=== PATIENT | female | born 1930 | race Caucasian/White ===

== ENCOUNTER 2016-11-07 16:22 | Observation (INO) | payer OTHER ==
[~2016-11-07] VITALS: Ht 162.6 cm; Wt 69.7 kg
[~2016-11-07 16:22] MED LIST: ATORVASTATIN CA40 MG PO; CIPRO500 MG PO; COUMADIN2 MG PO; DOK PLUS TABLE1 EACH PO; DONEPEZIL HCL10 MG PO; ELIQUIS5 MG PO; GLIMEPIRIDE4 MG PO; INSULIN SQ; LANTUS 3 M100 UNITS1 SC; LEVAQUIN500 MG PO; LIPITOR20 MG PO; LISINOPRIL5 MG PO; LO-DOSE ASPIRIN81 M1 PO; LORATADINE10 M2 PO; PANTOPRAZOLE SO40 MG PO; PROZAC40 MG PO; SPIRIVA RESPIMAT4 GM IH; VITAMIN D31000 UNI2 PO; ZOFRAN ODT4 MG PO; ZOFRAN4 MG PO; [UNRECOGNIZED DRUG - OTHER] PO; [UNRECOGNIZED DRUG - OTHER] PO
[2016-11-07 17:51] LABS: CHLORIDE 105 mEq/L (99-109); HEMATOCRIT 40.4 % (36.0-46.0); MCH 28.2 PG (29.0-34.0); MCHC 31.7 G/DL (30.0-36.0); MEAN PLAT.VOLUME 10.3 uM^3 (9.5-12.4); PLATELET COUNT 206 K/uL (156-360); RBC DIS.WIDTH-CV 14.3 % (11.8-14.6); RED BLOOD COUNT 4.54 M/uL (3.80-5.20); SODIUM 142 mEq/L (136-147)
[2016-11-07 17:52] LABS: GLUCOSE 136 mg/dL (70-99)
[2016-11-07 17:54] LABS: ANION GAP 10 MEQ/L (2-14)
[2016-11-07 17:56] LABS: GFR ESTIMATE (CALCULATED) 38 mL/min/
[2016-11-07 17:57] LABS: UREA NITROGEN (BUN) 16 mg/dL (9-23)
[2016-11-07 18:02] LABS: WHITE BLOOD COUNT 12.1 K/uL (4.1-10.2)
[2016-11-07 18:03] LABS: INTER. NORMALIZED RATIO 1.4; PROTHROMBIN TIME 14.9 (9.2-11.2)
[2016-11-07 18:04] LABS: ADD MIUA? YES; BILIRUBIN NEGATIVE; BLOOD NEGATIVE; COLOR YELLOW ((YELLOW)); GLUCOSE (STRIP) NEGATIVE; KETONES NEGATIVE; LEUKOCYTES SMALL; NITRITE NEGATIVE; PROTEIN (STRIP) NEGATIVE; SPECIFIC GRAVITY 1.018 (1.000-1.030)
[2016-11-07 18:20] LABS: BACTERIA RARE /HPF; EPITHELIAL CELLS 3+ /HPF; MUCUS TRACE /LPF; RED BLOOD CELLS NONE SEEN /HPF (0-5); UCUL ADDED? NO
[2016-11-07 20:45] VITALS: BP 144/64
[2016-11-07] MEDS ORDERED: CLARITIN,ALAVAR10 MG PO (21:41)
[2016-11-07] MEDS ORDERED: DONEPEZIL HCL23 MG PO (21:42)
[2016-11-07] MEDS ORDERED: XARELTO15 MG PO (21:43)
[2016-11-07] MEDS ORDERED: SERTRALINE HCL25 MG PO (21:44)
[2016-11-07] MEDS ORDERED: FLONASE16 G1 BOTH NARES (21:44)
[2016-11-08 00:12] VITALS: BP 115/56
[2016-11-08 05:01] VITALS: BP 154/72
[2016-11-08 06:25] LABS: EOSINOPHIL (%) 1.8 % (0-5); EOSINOPHIL COUNT 0.2 K/uL (0-0.3); HEMATOCRIT 35.6 % (36.0-46.0); IMMATURE GRANULOCYTE (%) 0.2 % (0.0-0.7); INSTRUMENT ABS NEUTROPHIL CT 2.2 K/uL; LYMPHOCYTE COUNT 5.2 K/uL (1.0-2.8); MCH 27.8 PG (29.0-34.0); MCHC 30.9 G/DL (30.0-36.0); MCV 89.9 FL (83-99); MEAN PLAT.VOLUME 10.1 uM^3 (9.5-12.4); MONOCYTE (%) 6.6 % (3-12); MONOCYTE COUNT 0.5 K/uL (0-0.8); NEUTROPHIL (%) 27.2 % (45-76); NEUTROPHIL COUNT 2.2 K/uL (1.8-6.4); PLATELET COUNT 162 K/uL (156-360); RBC DIS.WIDTH-CV 14.2 % (11.8-14.6); RBC DIS.WIDTH-SD 46.5 % (39-53); RED BLOOD COUNT 3.96 M/uL (3.80-5.20)
[2016-11-08 06:26] LABS: WHITE BLOOD COUNT 8.2 K/uL (4.1-10.2)
[2016-11-08 06:47] LABS: ALKALINE PHOSPHATASE 63 IU/L (3-129); ANION GAP 6 MEQ/L (2-14); CHLORIDE 108 MEQ/L (99-109); GFR ESTIMATE (CALCULATED) 38 mL/min/; GLUCOSE 136 mg/dL (70-99); MAGNESIUM 1.7 mg/dl (1.3-2.7); POTASSIUM 3.9 MEQ/L (3.7-5.4); SAMPLE HEMOLYSIS CHECK 0; SAMPLE ICTERIC CHECK 0; SAMPLE LIPEMIA CHECK 0; SODIUM 140 MEQ/L (136-147); TOTAL BILIRUBIN 1.5 MG/DL (0.0-1.0); UREA NITROGEN (BUN) 13 mg/dL (9-23)
[2016-11-08 07:47] VITALS: BP 132/63
[2016-11-08 08:19] LABS: POINT-OF-CARE METER ID UU14162513
[2016-11-08 10:54] VITALS: BP 147/64
[2016-11-08 14:48] LABS: C DIFF TOXIN NEGATIVE (NEGATIVE)
[2016-11-08 14:49] LABS: PROBE CHECK PASS; SPECIMEN PROCESSING CONTROL PASS
== END 2016-11-08 16:43 | disposition home or self-care (01) ==
LOC: EME 16:22 → EDOF 19:13 → 5WEST 19:13
PROVIDERS: Emergency Medicine; Hospitalist; Physician Assistant Medical
DX: A08.4 Viral intestinal infection, unspecified (principal); F03.90 Unspecified dementia, unspecified severity, without behavioral disturbance, psychotic disturbance, mood disturbance, and anxiety; C95.90 Leukemia, unspecified not having achieved remission; Z86.718 Personal history of other venous thrombosis and embolism; Z86.711 Personal history of pulmonary embolism; Z95.828 Presence of other vascular implants and grafts; I12.9 Hypertensive chronic kidney disease with stage 1 through stage 4 chronic kidney disease, or unspecified chronic kidney disease; E78.5 Hyperlipidemia, unspecified; E11.22 Type 2 diabetes mellitus with diabetic chronic kidney disease; Z79.4 Long term (current) use of insulin; K21.9 Gastro-esophageal reflux disease without esophagitis; N18.3 Chronic kidney disease, stage 3 (moderate); J44.9 Chronic obstructive pulmonary disease, unspecified; Z66 Do not resuscitate
CPT/HCPCS: 74176; 80048; 80053; 81003; 82948; 83735; 85025; 85027; 85610; 87493; 94799; 99281; 99285; G0378; J0696; J1815; J2405; J7030; J7050